=== PATIENT | male | born 1970 | race Two or more races ===

== ENCOUNTER 2020-09-17 19:33 | Emergency (ER) | payer SELFPAY ==
[~2020-09-17] VITALS: Ht 172.7 cm; Wt 90.7 kg
[2020-09-17 19:33] VITALS: BP 130/77
== END 2020-09-18 07:54 | disposition left against medical advice (07) ==
LOC: ER 19:34
DX: R11.2 Nausea with vomiting, unspecified (principal); R19.7 Diarrhea, unspecified; R50.9 Fever, unspecified; Z53.21 Procedure and treatment not carried out due to patient leaving prior to being seen by health care provider